=== PATIENT | female | born 1990 | race Caucasian/White ===

== ENCOUNTER 2016-09-18 11:36 | Emergency (ER) | payer OTHER ==
[2016-09-18 12:11] VITALS: BP 107/59
--- NOTE | 2016-09-18 12:20 | UC ---
UC Dental HPI - HPI Summary HPI Summary: dental pain x 4 days pain is at left lower back molar, - History of Current Complaint Chief Complaint: UCDentalProblem Stated Complaint: TOOTH ACHE Time Seen by Provider: 09/18/16 11:39 Hx Obtained From: Patient Hx Last Menstrual Period: June ?: Yes Onset/Duration: Gradual Onset, Lasting Days - 4, Still Present Severity: Moderate Aggravating: Cold, Chewing Alleviating: Nothing Dental: 1 - mission molar / erythema, tenderness - Allergies/Home Medications Allergies/Adverse Reactions: Allergies Allergy/AdvReac Type Severity Reaction Status Date / Time No Known Allergies Allergy Verified 09/18/16 11:42 Home Medications: Home Medications Acetaminophen TAB* [Tylenol TAB*] 650 mg PO Q4H PRN 09/18/16 [History Confirmed 09/18/16] PMH/Surg Hx/FS Hx/Imm Hx Previously Healthy: Yes - Surgical History Surgical History: None - Family History Known Family History: Negative: Diabetes - Social History Alcohol Use: None Substance Use Type: None Smoking Status (MU): Light Every Day Tobacco Smoker Type: Cigarettes Amount Used/How Often: 1-2 CIGS PER DAY Have You Smoked in the Last Year: Yes Review of Systems Constitutional: Negative Skin: Negative Eyes: Negative ENT: Dental Pain Respiratory: Negative Cardiovascular: Negative All Other Systems Reviewed And Are Negative: Yes Physical Exam Triage Information Reviewed: Yes Appearance: Well-Appearing, No Pain Distress, Well-Nourished Vital Signs: Initial Vital Signs Temp 99.2 F 09/18/16 11:42 Pulse 67 09/18/16 11:42 Resp 18 09/18/16 11:42 BP 107/59 09/18/16 11:42 Pulse Ox 100 09/18/16 11:42 Vital Signs Reviewed: Yes Eyes: Positive: Conjunctiva Clear ENT: Positive: Normal ENT inspection, Hearing grossly normal, Pharynx normal Dental: Positive: Percussion Tenderness @ - # 17 and 18, Gross Decay/Caries @ - # 17 and 18 Neck: Positive: Supple, Nontender, No Lymphadenopathy Respiratory Exam: Normal Respiratory: Positive: Chest non-tender, Lungs clear Cardiovascular: Positive: RRR, No Murmur, Pulses Normal Skin Exam: Normal Dental Complaint Course/Dx - Differential Dx/Diagnosis Provider Diagnoses: dental pain Discharge - Discharge Plan Condition: Stable Disposition: HOME Prescriptions: Amoxicillin (*) [Amoxicillin 875 MG (*)] 875 mg PO BID #20 tab Patient Education Materials: Toothache (ED) Referrals: No Primary Care Phys,NOPCP [Primary Care Provider] - Additional Instructions: follow up with your dentist bucky
== END 2016-09-18 12:34 | disposition home or self-care (01) ==
LOC: UCCORT 11:36
DX: K08.89 Other specified disorders of teeth and supporting structures (principal); F17.210 Nicotine dependence, cigarettes, uncomplicated
CPT/HCPCS: 99202; G0463

== ENCOUNTER 2018-06-26 10:14 | Emergency (ER) | payer OTHER ==
--- OUTSIDE RECORDS SUMMARY | 2018-06-26 10:27 | XMS REPORT | Continuity of Care Document ---
:1990 External Reference #:[id number] Author Name Becca Camposnda Care Team Providers Name Role Phone Jenaro Olivarez MD Care Team Information Core Loader Unavailable Payers Type Date Identification Numbers Payment Provider Subscriber Policy Number: [id number] Van Potter PayID: [id number] [address] [place] [address] Advance Directives Description No Information Available Problems Date Description Provider Status Onset: 04/24/2018 Calculus of gallbladder with cholecystitis Active Onset: 03/16/2018 Palpitations Active Onset: 03/16/2018 Overweight Active Onset: 03/16/2018 Gastroesophageal reflux disease Active Family History Date Family Member(s) Problem(s) Comments Children 3 First Son Oldest of 3 children First Daughter Second of three children Second Daughter Third of three children Social History Type Date Description Comments Sex Unknown Marital Status Lives With Spouse Lives With Children Lives With Mother In Law Tobacco Use Start: Unknown Patient is a current smoker, smokes every day Smoking Status Reviewed: 06/03/18 Patient is a current smoker, smokes every day Contraceptive Methods Current methods include tubal ligation Allergies, Adverse Reactions, Alerts Date Description Reaction Status Severity Comments 05/02/2018 Codeine Anxiety Active Mild Medications Medication Date Status Form Strength Qnty SIG Indications Ordering Provider Propranolol HCL 06/03/ Active Caps ER 60mg 30caps 1 by mouth G43.109 Jenaro ER 2019 24HR every day Cintia westbrook MD Sumatriptan 06/03/ Active Tablets 25mg 10tabs take 1 G43.109 Jenaro Succinate 2019 tablet by Cintia hitchcock at [facility] onset of migraine,i f headache persists,r epeat in 2 hours Ibuprofen 02/04/ Active Capsules 200mg 2 tabs by Jenaro 2018 mouth Cintia every 6 os, hours as needed Acetaminophen 02/04/ Active Liquid 500mg/15ML 3 in in Jenaro [facility] Jaylene 2018 the Cintia morning os, then 2 x2 other times Magnesium Oxide 00/ Active Tablets 400(241.3M Unknown 0000 g) mg Vitamin B-12 / Active Tablets 500mcg Unknown 0000 Immunizations Description No Information Available Vital Signs Date Vital Result Comment 06/03/2018 1:58pm Height 64 inches 5'4" Weight 195.00 lb Heart Rate 99 /min BP Systolic 108 mmHg BP Diastolic 72 mmHg Respiratory Rate 16 /min O2 % BldC Oximetry 98 % BMI (Body Mass Index) 33.5 kg/m2 05/02/2018 10:08am Weight 191.00 lb BP Systolic 106 mmHg BP Diastolic 68 mmHg 02/18/2018 10:26am Weight 189.00 lb BP Systolic 124 mmHg BP Diastolic 72 mmHg 02/04/2018 9:31am Height 64 inches Weight 192.00 lb Heart Rate 72 /min BP Systolic 112 mmHg BP Diastolic 76 mmHg Respiratory Rate 16 /min Height Percentile 97 % Results Test Date Facility Test Result H/L Range Note Laboratory test finding 04/25/2018 N2N/CCD Import Lipase 176 U/L 56-289 CBC 04/25/2018 N2N/CCD Import Hematocrit 39.2 % 36-46.1 1 Hemoglobin 12.3 gm/dL 11.6-15.8 Mean Cell Volume 83.9 fl 80.9-99 Mean Corpuscular HGB 26.3 pg 25.9-32.7 Mean Corpuscular HGB Conc 31.4 g/dL 30.8-34.3 Mean Platelet Volume 10.7 fL 8.9-12.4 Platelet Count 359 K/uL 155-360 Red Blood Count 4.67 M/uL 3.9-5.4 Red Cell Distri Width %CV 14.6 % High 11.7-14.4 White Blood Count 8.3 K/uL 3.1-10.7 Laboratory test finding 04/24/2018 N2N/CCD Import Lipase 156 U/L 56-289 CBS W/Automated Diff 04/24/2018 N2N/CCD Import Bas% 0.1 % 0-1.1 Baso # 0.01 K/uL 0-0.1 Eo% 1.2 % 0-6.6 Eos # 0.10 K/uL 0-0.5 Hematocrit 42.4 % 36-46.1 Hemoglobin 13.8 gm/dL 11.6-15.8 Lymph # 1.33 K/uL 1-4 Lymph % 15.9 % Low 20-42 Mean Cell Volume 83.3 fl 80.9-99 Mean Corpuscular HGB 27.1 pg 25.9-32.7 Mean Corpuscular HGB Conc 32.5 g/dL 30.8-34.3 Mean Platelet Volume 10.4 fL 8.9-12.4 Slope # 0.50 K/uL 0.3-0.9 Slope % 6.0 % 4.3-13.2 Neut# 6.42 K/uL 1.8-7 Neut% 76.8 % High 40.4-72.8 Platelet Count 302 K/uL 155-360 Red Blood Count 5.09 M/uL 3.9-5.4 Red Cell Distri Width %CV 14.9 % High 11.7-14.4 Red Cell Distri Width SD 45.1 fl 36-47 White Blood Count 8.4 K/uL 3.1-10.7 Comprehensive Metabolic Panel 04/24/2018 N2N/CCD Import Anion Gap 6 mEq/L Low 8-16 BUN 2 mg/dL Low 7-18 BUN/Creat 3.3 ratio Calcium 8.5 mg/dL 8.5-10.1 Carbon Dioxide 25 mmol/L 21-32 Chloride 108 mmol/L High 98-107 Creatinine 0.6 mg/dL 0.6-1.3 Glom Filtration Rate, Estimate >60 mL/min Glucose 93 mg/dL 74-106 If >60 mL/min 2 Potassium 4.0 mmol/L 3.5-5.1 Sodium 139 mmol/L 136-145 Liver Function Tests 04/24/2018 N2N/CCD Import Alb/Glob 0.9 ratio Albumin 3.4 g/dL 3.4-5 Alkaline Phosphatase 88 U/L 45-117 Bilirubin,Direct 0.3 mg/dL High 0-0.2 Bilirubin,Indirect 0.7 mg/dL 0-0.9 Bilirubin,Total 1.0 mg/dL 0.2-1 Globulin 3.7 g/dL 1.9-4.3 SGPT/Alt 208 U/L High 12-78 Sgot/Ast 113 U/L High 15-37 Total Protein 7.1 g/dL 6.4-8.2 Liver Function Tests 04/24/2018 [employer]Infor Import Alb/Glob 0.9 ratio Albumin 3.3 g/dL Low 3.4-5 Alkaline Phosphatase 64 U/L 45-117 Bilirubin,Direct 0.2 mg/dL 0-0.2 Bilirubin,Indirect 0.7 mg/dL 0-0.9 Bilirubin,Total 0.9 mg/dL 0.2-1 Globulin 3.6 g/dL 1.9-4.3 SGPT/Alt 138 U/L High Sgot/Ast 45 U/L High 15-37 Total Protein 6.9 g/dL 6.4-8.2 Urine Culture 04/23/2018 [facility]/Infor Import Quantity 10,000 - 50,000 <See Note > 3 Urine Culture Urethral [place] Urinalysis With 04/23/2018 [employer]for Import Source: Urine, Clean Cat 4 Microscopic <See Note> Urine Bacteria Moderate Abnormal Urine Bilirubin - Dipstick Negative Urine Blood Small Abnormal Urine Clarity Clear Urine Color Yellow Urine Epithelial Cells Few /lpf Urine Glucose - Dipstick Negative mg/dL Urine Ketone Negative mg/dL Urine Leuk Esterase Small Abnormal Urine Nitrite - Dipstick Negative Urine PH 6.0 1 Low 6.5-7.5 Urine Protein - Dipstick Negative mg/dL Urine RBC 0-2 rbc/hpf 0-2 Urine Specific [place] >=1.030 1.01-1.03 Urine Urobilinogen - Dipstick 0.2 E.U./dL 0.2-1 Urine WBC 5-10 wbc/hpf 0-7 Comprehensive Metabolic Panel 04/23/2018 [facility]/Infor Import Alb/Glob 0.9 ratio 5 Albumin 3.7 g/dL 3.4-5 Alkaline Phosphatase 66 U/L 45-117 Anion Gap 8 mEq/L 8-16 BUN 8 mg/dL 7-18 BUN/Creat 11.4 ratio Bilirubin,Total 0.3 mg/dL 0.2-1 Calcium 8.6 mg/dL 8.5-10.1 Carbon Dioxide 26 mmol/L 21-32 Chloride 106 mmol/L 98-107 Creatinine 0.7 mg/dL 0.6-1.3 Globulin 4.0 g/dL 1.9-4.3 Glom Filtration Rate, Estimate >60 mL/min Glucose 100 mg/dL 74-106 If >60 mL/min 6 Potassium 3.6 mmol/L 3.5-5.1 SGPT/Alt 20 U/L 12-78 Sgot/Ast 6 U/L Low 15-37 7 Sodium 140 mmol/L 136-145 Total Protein 7.7 g/dL 6.4-8.2 CBS W/Automated Diff 04/23/2018 N2N/CCD Import Bas% 0.1 % 0-1.1 Baso # 0.02 K/uL 0-0.1 Eo% 0.9 % 0-6.6 Eos # 0.15 K/uL 0-0.5 Hematocrit 42.2 % 36-46.1 Hemoglobin 14.0 gm/dL 11.6-15.8 Lymph # 1.78 K/uL 1-4 Lymph % 10.7 % Low 20-42 Mean Cell Volume 82.3 fl 80.9-99 Mean Corpuscular HGB 27.3 pg 25.9-32.7 Mean Corpuscular HGB Conc 33.2 g/dL 30.8-34.3 Mean Platelet Volume 10.2 fL 8.9-12.4 Slope # 0.84 K/uL 0.3-0.9 Slope % 5.1 % 4.3-13.2 Neut# 13.84 K/uL High 1.8-7 Neut% 83.2 % High 40.4-72.8 Platelet Count 336 K/uL 155-360 Red Blood Count 5.13 M/uL 3.9-5.4 Red Cell Distri Width %CV 14.5 % High 11.7-14.4 Red Cell Distri Width SD 43.1 fl 36-47 White Blood Count 16.6 K/uL High 3.1-10.7 Laboratory test finding 04/23/2018 N2N/CCD Import Band% 2 % 0-8 Basophil% 2 % 0-2 Dohle Bodies 1+ Eosinophil% 1 % 0-5 HCG,Serum (Qualitative) Negative 8 Lipase 143 U/L 56-289 Lymph% 13 % Low 20-42 Monocyte% 2 % 0-10 Neutrophils% 80 % High 33-73 Platelet Estimate Normal Slide Review Diff Ordered Total Cells Counted 100 #CELLS Toxic Granulation 1+ Laboratory test 02/05/2018 N2N/CCD Import Act Partial 31.9 s 23.4-35 9 finding Thrombo Time Anticoagulant Therapy? No Thyroid Stim Hormone 1.05 uIU/mL 0.3-4.2 Vitamin D,25-Hydroxy 25.1 ng/mL Low 30-100 10 CBC 02/05/2018 [facility]/Infor Import Anticoagulant Therapy? No Hematocrit 43.0 % 36-46.1 Hemoglobin 14.1 gm/dL 11.6-15.8 Mean Cell Volume 82.4 fl 80.9-99 Mean Corpuscular HGB 27.0 pg 25.9-32.7 Mean Corpuscular HGB Conc 32.8 g/dL 30.8-34.3 Mean Platelet Volume 10.4 fL 8.9-12.4 Platelet Count 321 K/uL 155-360 Red Blood Count 5.22 M/uL 3.9-5.4 Red Cell Distri Width %CV 14.9 % High 11.7-14.4 White Blood Count 8.4 K/uL 3.1-10.7 Comprehensive Metabolic Panel 02/05/2018 [facility]/Infor Import Alb/Glob 1.1 ratio Albumin 4.0 g/dL 3.4-5 Alkaline Phosphatase 51 U/L 45-117 Anion Gap 8 mEq/L 8-16 BUN 11 mg/dL 7-18 BUN/Creat 18.3 ratio Bilirubin,Total 0.6 mg/dL 0.2-1 Calcium 8.5 mg/dL 8.5-10.1 Carbon Dioxide 25 mmol/L 21-32 Chloride 108 mmol/L High 98-107 Creatinine 0.6 mg/dL 0.6-1.3 Globulin 3.6 g/dL 1.9-4.3 Glom Filtration Rate, Estimate >60 mL/min Glucose 86 mg/dL 74-106 If >60 mL/min 11 Potassium 4.1 mmol/L 3.5-5.1 SGPT/Alt 19 U/L 12-78 Sgot/Ast 6 U/L Low 15-37 12 Sodium 141 mmol/L 136-145 Total Protein 7.6 g/dL 6.4-8.2 LDL Cholesterol Profile 02/05/2018 [facility]/Infor Import Cholesterol 159 mg/dL 13 HDL Cholesterol 45 mg/dL 14 LDL-Cholesterol 100 mg/dL 15 Triglycerides 71 mg/dL 16 Protime 02/05/2018 Accountable/CCD Import Anticoagulant Therapy? No Inr 1.0 1 0.9-1.1 17 Protime 13.5 s 12-14.4 1 CHOLEDOCHOLITHIASIS, CHOLELITHIASIS 2 Note: Persistent reduction for 3 months or more in an eGFR <60 mL/min/1.73 m2 defines CKD. Patients with eGFR values >/=60 mL/min/1.73 m2 may also have CKD if evidence of persistent proteinuria is present. The original MDRD equation for estimated GFR is not valid for patients less than 18 years of age. Additional information may be found at www.kdoqi.org. 3 10,000 - 50,000 CFU/mL 4 URINE, CLEAN CATCH 5 GALL BLADDER 6 Note: Persistent reduction for 3 months or more in an eGFR <60 mL/min/1.73 m2 defines CKD. Patients with eGFR values >/=60 mL/min/1.73 m2 may also have CKD if evidence of persistent proteinuria is present. The original MDRD equation for estimated GFR is not valid for patients less than 18 years of age. Additional information may be found at www.kdoqi.org. 7 Values below the stated reference ranges of AST and ALT can be seen in normal populations. Clinical correlation is suggested. 8 Method: Quidel QuickVue One-Step Immunoassay 9 R00.2 E66.3 Z01.818 10 Vitamin D deficiency has been defined by the [employer] of [employer] and an Endocrine Society practice guideline as a level of serum 25-OH vitamin D less than 20 ng/mL (1,2). The Endocrine Society went on to further define vitamin D insufficiency as a level between 21 and 29 ng/mL (2). 1. IOM ([employer] of [employer]). 2010. Dietary reference intakes for calcium and D. Muk[place]jee [place]: The National Academies Press. 2. Steffany MF, Jennifer NC, Patrick ESPARZA, et al. Evaluation, treatment, and prevention of vitamin D deficiency: an Endocrine Society clinical practice guideline. JCEM. 2010; 96(7):1911-30. Performed at: RN - [facility] [address] [id number] [place] Tender: Janice Lopez MD, Phone: [phone] 11 Note: Persistent reduction for 3 months or more in an eGFR <60 mL/min/1.73 m2 defines CKD. Patients with eGFR values >/=60 mL/min/1.73 m2 may also have CKD if evidence of persistent proteinuria is present. The original MDRD equation for estimated GFR is not valid for patients less than 18 years of age. Additional information may be found at www.kdoqi.org. 12 Values below the stated reference ranges of AST and ALT can be seen in normal populations. Clinical correlation is suggested. 13 Reference Guidelines*: Desirable: ........... < 200 mg/dL Borderline High: ..... 200-239 mg/dL High: ................ >=240 mg/dL * The National Cholesterol Education Program (NCEP) 14 Reference Guidelines*: Low HDL: ..... < 40 mg/dL Normal: ..... 40-60 mg/dL Desirable: ... > 60 mg/dL *The National Cholesterol Education Program(NCEP) 15 Reference Guidelines*: Optimal:........... <100 mg/dL Near Optimal....... 100-129 mg/dL Borderline High.... 130-159 mg/dL High............... 160-189 mg/dL Very High.......... >=190 mg/dL * Source: National Cholesterol Education Program (NCEP) 16 Reference Guidelines*: Normal: ............. < 150 mg/dL Borderline High: .... 150-199 mg/dL High: ............... 200-499 mg/dL Very High: .......... > 500 mg/dL * Source: National Cholesterol Education Program (NCEP) 17 THERAPEUTIC INR RANGE: 2.0 - 3.0 DVT, Pulmonary embolus, prophylaxis against venous thrombosis or systemic embolization in high risk patients. 2.5 - 3.5 Mechanical heart valves Procedures Date Code Description Status 05/27/2018 54183211 Mammogram Completed 02/04/2018 60329 EKG Tracing & Interpretation Completed Encounters Description No Information Available Plan of Treatment Future Appointment(s):07/15/2018 9:30 am - Jenaro Olivarez MD at [facility]06/03/2018 - Jenaro Olivarez MDG43.109 Migraine with aura, not intractable, without status migrainoNew Medication:Propranolol HCL ER 60 mg - 1 by mouth every daySumatriptan Succinate 25 mg - take 1 tablet by mouth at onset of migraine,if headache persists,repeat in 2 [id number] Encounter for screening mammogram for malignant neoplasm ofReferral:No Doctor Selected
[2018-06-26] MEDS ORDERED: NS 0.9% 1000 ML** 1,000 ML IV ONE (10:52)
[2018-06-26] MEDS ORDERED: Metoclopramide IV* 5 MG/ML 2 ML VIAL IV ONE (11:53)
[2018-06-26] MEDS ORDERED: Ketorolac INJ* 30 MG/ML 1 ML VIAL IV PUSH ONE (11:53)
[2018-06-26] MEDS ORDERED: diPHENhydraMINE IV* 50 MG/ML 1 ml VIAL (BENADRYL) IV ONE (11:53)
[2018-06-26 12:35] LABS: Influenza A Molecular NEGATIVE (Negative); Influenza B Molecular NEGATIVE (Negative)
--- NOTE | 2018-06-26 12:52 | ED ---
Headache - HPI Summary HPI Summary: Ms. Pottre woke up this morning with nausea and vomiting and then developed a right-sided temporal headache. She describes the headache as stabbing which is typical for her migraine headaches and in the typical spot. She also normally gets nauseated and vomiting with migraine headaches but usually the headache comes first. She is concerned that she might have influenza as her mother does. - History Of Current Complaint Chief Complaint: UCGeneralIllness Stated Complaint: ESPARZA,NAUSEA,VOMITING Time Seen by Provider: 06/26/18 10:38 Hx Last Menstrual Period: June - Allergies/Home Medications Allergies/Adverse Reactions: Allergies Allergy/AdvReac Type Severity Reaction Status Date / Time No Known Allergies Allergy Verified 06/26/18 10:31 Home Medications: Home Medications Blood Pressure Med 1 tab DAILY 06/26/18 [History] SUMAtriptan TAB* [Imitrex TAB*] 1 tab DAILY PRN 06/26/18 [History Confirmed ] PMH/Surg Hx/FS Hx/Imm Hx Previously Healthy: Yes - Surgical History Surgery Procedure, Year, and Place: Tubal. Gallbladder Infectious Disease History: No Infectious Disease History: Denies: Traveled Outside the [place] in Last 30 Days - Family History Known Family History: Negative: Diabetes - Social History Alcohol Use: None Substance Use Type: Reports: None Smoking Status (MU): Former Smoker Type: Cigarettes Amount Used/How Often: 1-2 CIGS PER DAY Have You Smoked in the Last Year: Yes Review of Systems Constitutional: Negative Positive: Photophobia ENT: Negative Cardiovascular: Negative Respiratory: Negative Gastrointestinal: Negative Genitourinary: Negative Musculoskeletal: Negative Skin: Negative Positive: Headache All Other Systems Reviewed And Are Negative: Yes Physical Exam - Summary Physical Exam Summary: She is nontoxic in appearance with stable vital signs. Triage Information Reviewed: Yes Vital Signs On Initial Exam: Initial Vitals Temp Pulse Resp BP Pulse Ox 98 F 71 16 98/73 98 06/26/18 10:33 06/26/18 10:33 06/26/18 10:33 06/26/18 10:33 06/26/18 10:33 Vital Signs Reviewed: Yes Appearance: Positive: Well-Appearing Skin: Positive: Warm, Skin Color Reflects Adequate Perfusion, Dry Eyes: Positive: Normal ENT: Positive: Normal ENT inspection Neck: Positive: Supple, Nontender. Negative: Nuchal Rigidity Respiratory/Lung Sounds: Positive: Clear to Auscultation Cardiovascular: Positive: Normal Diagnostics - Vital Signs Vital Signs Temp Pulse Resp BP Pulse Ox 06/26/18 10:33 98 F 71 16 98/73 98 - Laboratory Lab Results: Lab Results 06/26/18 Range/Units 12:23 Influenza A (Rapid) Negative (Negative) Influenza B (Rapid) Negative (Negative) Lab Statement: Any lab studies that have been ordered have been reviewed, and results considered in the medical decision making process. Headache Course/Dx - Course Course Of Treatment: An IV was placed and she was given normal saline along with metoclopramide, ketorolac and diphenhydramine. She got complete relief for headache with that and an influenza swab was negative. - Diagnoses Provider Diagnoses: Migraine Discharge - Sign-Out/Discharge Documenting (check all that apply): Patient Departure All imaging exams completed and their final reports reviewed: Yes - Discharge Plan Condition: Stable Disposition: HOME Patient Education Materials: Migraine Headache (ED) Referrals: Jenaro Olivarez MD [Primary Care Provider] - - Billing Disposition and Condition Condition: STABLE Disposition: Home
[2018-06-26 13:04] VITALS: BP 103/67
== END 2018-06-26 13:03 | disposition home or self-care (01) ==
LOC: UCCORT 10:14
DX: G43.909 Migraine, unspecified, not intractable, without status migrainosus (principal); Z87.891 Personal history of nicotine dependence
CPT/HCPCS: 96361; 96374; 96375; 99212; G0463; J1200; J1885; J2765

== ENCOUNTER 2018-08-25 11:37 | Emergency (ER) | payer OTHER ==
--- NOTE | 2018-08-25 11:56 | UC ---
"Dental HPI - HPI Summary HPI Summary: Patient presents to urgent care for evaluation of pain in her left lower teeth. Patient states she's got bad dentition that broke of the gumline. Patient states she previously was going to have them pulled Blosser dental discharge. Patient states she now has insurance but does not have a dentist. Patient denies fevers or chills. Patient's been taking acetaminophen and using mouthwash with little improvement. Mild lower jaw swelling. No intraoral oral swelling. No difficulty with swallowing. No other complaints. Patient states she is not . Patient's medications reviewed this visit. - History of Current Complaint Stated Complaint: DENTAL CONCERN Time Seen by Provider: 08/25/18 11:55 Hx Obtained From: Patient Hx Last Menstrual Period: June Onset/Duration: Gradual Onset Severity: Moderate Pain Intensity: 4 Pain Scale Used: 0-10 Numeric - Allergies/Home Medications Allergies/Adverse Reactions: Allergies Allergy/AdvReac Type Severity Reaction Status Date / Time hydrocodone Allergy Difficulty Verified 08/25/18 12:01 Breathing PMH/Surg Hx/FS Hx/Imm Hx Previously Healthy: Yes - Surgical History Surgical History: Yes Surgery Procedure, Year, and Place: Tubal. Gallbladder - Family History Known Family History: Positive: Non-Contributory Negative: Diabetes - Social History Occupation: Employed Full-time Lives: With Family Alcohol Use: None Substance Use Type: None Smoking Status (MU): Former Smoker Type: Cigarettes Amount Used/How Often: 1-2 CIGS PER DAY Have You Smoked in the Last Year: Yes Review of Systems All Other Systems Reviewed And Are Negative: Yes Constitutional: Positive: Negative Skin: Positive: Negative ENT: Positive: Dental Pain Respiratory: Positive: Negative Physical Exam - Summary Physical Exam Summary: Vital Signs Reviewed: Yes A+Ox3, no distress Eyes: Conjunctiva Clear, WILLIAM. EOM intact and full ENT: Hearing grossly normal TM x 2 clear turbinates wnl, mmoist, uvula midline , no exudate, no erythema poor dentition: + multiple caries, teeth broken at gumline #17-19 broken at gumline + erythema, no drainage, +TTP #18 buccal membrane mild left mandibular edema Neck: Positive: Supple Respiratory: Positive: No respiratory distress, No accessory muscle use + CTA throughout no w/r Cardiovascular: RRR nl s1, s2 no m/r CBT <2 sec abd soft + BS nt/nd no guarding, no distension Musculoskeletal Exam: ALVAREZ x 4 without difficulty Strength Intact, ROM Intact Neurological: Positive: Alert, + sensation throughout Psychological: Positive: Normal Response To Family Skin: Positive: no rash, no ecchymosis Triage Information Reviewed: Yes Dental Complaint Course/Dx - Course Course Of Treatment: Patient presents to urgent care with 3 days progressive lower dental pain. Patient with a history of multiple caries and broken teeth. Patient states she does not currently have a dentist. Patient's been using Tylenol as well as mouthwash with little improvement. On exam vital signs are stable. Patient report edition lower teeth. Patient with this about caries and tenderness at the program when #18. Patient with mild left lower jaw pain. Will prescribe antibiotics as well as mouth rinse. Recommend help with dentist. List given Motrin/APAP. Strict return precautions. Patient comfortable in agreement with plan. Anne Marie Key Carlos | Reference #: [id number] - Differential Dx/Diagnosis Provider Diagnosis: Pain, dental Discharge - Sign-Out/Discharge Documenting (check all that apply): Patient Departure All imaging exams completed and their final reports reviewed: No Studies - Discharge Plan Condition: Stable Disposition: HOME Prescriptions: Amoxicillin/Clavulanate TAB* [Augmentin TAB 875*] 875 mg PO BID #20 tab Chlorhexidine Gluconate [Peridex] 15 ml SWISH SPIT Q8HR #150 ml Patient Education Materials: Toothache (ED) Referrals: Jenaro Olivarez MD [Primary Care Provider] - Additional Instructions: - Okay to alternate ibuprofen (Advil, Motrin) 600mg and Tylenol 1000mg every 3 hours for pain. Take with food. Do NOT take for more than 4-5 days -Swish and spit with warm salt water 3-4 times a day -Take antibiotics as prescribed until gone -Stay well hydrated - frequent sips of cold fluids will be soothing to your throat (popsicles, jello, ice cream, ice water) -Contact a clinic from the list provided to you today. If you develop swelling inside your mouth, difficulty with chewing or any other concerns it is recommended you go to the emergency department for further management - Billing Disposition and Condition Condition: STABLE Disposition: Home"
[2018-08-25 12:00] VITALS: BP 104/67
== END 2018-08-25 12:25 | disposition home or self-care (01) ==
LOC: UCCORT 11:37
DX: K08.89 Other specified disorders of teeth and supporting structures (principal); Z87.891 Personal history of nicotine dependence; Z88.5 Allergy status to narcotic agent
CPT/HCPCS: 99212; G0463